=== PATIENT | female | born 1965 | race Caucasian/White ===

== ENCOUNTER → 2018-08-10 | Outpatient (CLI) | payer BC ==
--- NOTE | 2018-08-10 11:57 | ECHOF ---
Referral Reason:I10 HYPERTENSION MEASUREMENTS -------- HEIGHT: 157.5 cm WEIGHT: 111.1 kg BP: RVIDd: 2.5 cm (< 3.3) IVSd: 1.1 cm (0.6 - 1.1) LVIDd: 4.5 cm (3.9 - 5.3) LVPWd: 1.1 cm (0.6 - 1.1) IVSs: 1.5 cm LVIDs: 3.2 cm LVPWs: 1.5 cm LAESV Index (A-L): 25.16 ml/m Ao Diam: 2.9 cm (2.0 - 3.7) AV Cusp: 1.7 cm (1.5 - 2.6) LA Diam: 3.6 cm (2.7 - 3.8) MV EXCURSION: 15.271 mm (> 18.000) MV EF SLOPE: 27 mm/s (70 - 150) EPSS: 1.0 cm MV E Esteban: 0.74 m/s MV DecT: 214 ms MV A Esteban: 0.87 m/s MV E/A Ratio: 0.84 RAP: 5.00 mmHg RVSP: 10.65 mmHg FINDINGS -------- Sinus rhythm. This was a technically adequate study. The left ventricular size is normal. There is borderline concentric left ventricular hypertrophy. Overall left ventricular systolic function is normal with, an EF between 55 - 60 %. The right ventricle is normal in size and function. Normal LA size by volume 22+/-6 ml/m2. The right atrium is normal in size. The aortic valve is trileaflet, and appears structurally normal. No aortic stenosis or regurgitation. The mitral valve leaflets are mildly thickened. There is trace to mild mitral regurgitation. Trace tricuspid regurgitation present. Right ventricular systolic pressure is normal at < 35 mmHg. There is no evidence of pulmonary hypertension. Trace/mild (physiologic) pulmonic regurgitation. The aortic root size is normal. Normal inferior vena cava with normal inspiratory collapse consistent with estimated right atrial pre ssure of 5 mmHg. There is no pericardial effusion. CONCLUSIONS -------- 1. Sinus rhythm. 2. This was a technically adequate study. 3. The left ventricular size is normal. 4. There is borderline concentric left ventricular hypertrophy. 5. Overall left ventricular systolic function is normal with, an EF between 55 - 60 %. 6. Normal LA size by volume 22+/-6 ml/m2. 7. The aortic valve is trileaflet, and appears structurally normal. No aortic stenosis or regurgitati on. 8. The mitral valve leaflets are mildly thickened. 9. There is trace to mild mitral regurgitation. 10. Trace tricuspid regurgitation present. 11. Right ventricular systolic pressure is normal at < 35 mmHg. 12. There is no evidence of pulmonary hypertension. 13. Trace/mild (physiologic) pulmonic regurgitation. 14. The aortic root size is normal. 15. There is no pericardial effusion. CLERICAL ADMINISTRATOR: Romero Lee RDCS
== END | disposition home or self-care (01) ==
LOC: RADNMMAIN 09:54
PROVIDERS: ATTEND Family Medicine
DX: I37.1 Nonrheumatic pulmonary valve insufficiency (principal); I34.0 Nonrheumatic mitral (valve) insufficiency; I11.9 Hypertensive heart disease without heart failure; I25.10 Atherosclerotic heart disease of native coronary artery without angina pectoris; Z88.5 Allergy status to narcotic agent
CPT/HCPCS: 93306

== ENCOUNTER 2018-08-16 11:42 | Day surgery (SDC) | payer BC ==
[2018-08-09 15:34] VITALS: BMI 44.8
[~2018-08-16 11:42] MED LIST: DEXAMETHASONE SOD PHOSPHATE 10 MG/ML 1 ML VIAL IV ONE; HYDROmorphone 0.5 MG/0.5 ML SYRINGE IVP PRN; LACTATED RINGERS 1,000 ML IV SCH; MORPHINE SULFATE 2 MG/ML SYRINGE IV PRN; ONDANSETRON 4 MG/2 ML VIAL IVP ONE; ONDANSETRON 4 MG/2 ML VIAL IVP PRN; Pre Op ABX Message 1 EACH MISC MISCELLANE ONE
[2018-08-16 12:12] VITALS: RESP 16; TEMP 96.9
[2018-08-16] MEDS ORDERED: LIDOCAINE 1% 20 ML VIAL (10MG/ML) FOR IV START INTRADERMA ONE (12:27)
[2018-08-16] MEDS ORDERED: SCOPOLAMINE 1.5MG/72HR PATCH TRANSDERM ONE (12:35)
[2018-08-16] MEDS ORDERED: fentaNYL (PF) 50 MCG/ML 2 ML AMP ONE (13:25)
[2018-08-16] MEDS ORDERED: KETAMINE 10 MG/ML 20 ML VIAL ONE (13:25)
[2018-08-16] MEDS ORDERED: MIDAZOLAM 2 MG/2 ML VIAL ONE (13:25)
[2018-08-16] MEDS ORDERED: PROPOFOL 10 MG/ML 20 ML VIAL IV ONE (13:25)
[2018-08-16] MEDS ORDERED: LIDOCAINE 1%-EPI 1:100,000 20 ML VIAL SQ ONE (13:35)
[2018-08-16] MEDS ORDERED: LACTATED RINGERS 1,000 ML IV ONE ×2 (14:20→15:53)
[2018-08-16] MEDS ORDERED: hydrALAZINE HCL 20 MG/ML 1 ML VIAL IVP PRN (15:15)
[2018-08-16 15:50] VITALS: BP 158/94; PULSE 90
--- NOTE | 2018-08-29 11:43 | P.OP ---
Date of Procedure: 08/16/18 Preoperative Diagnosis: Plantar fasciitis right foot Postoperative Diagnosis: Same Procedure(s) Performed: Endoscopic plantar fasciotomy procedure right foot Anesthesia: MAC Surgeon: Chano Valdez Operative Findings: Unremarkable Description of Procedure: On the date of surgery the patient was taken to the operating room in good condition placed on the operating table in a supine position where an IV was started and adequate IV anesthetic agents were utilized. Anesthesia was then further supplemented with approximately 10 mL of 1% Xylocaine plain given in an infiltrative block to the patient's right heel. The patient's right foot and ankle were then prepped and draped in the usual aseptic manner and over heavy web roll padding an ankle tourniquet was placed above the malleoli of the patient's right ankle The patient's right foot and ankle were then elevated and exsanguinated of blood and after approximately 1 minutes. A time the ankle tourniquet to the patient's right ankle was inflated to approximately 250 mmHg This point in time attention was directed to the plantar medial side of the patient's right heel where an approximately 0.75 cm linear incision was made the incision was placed in line with the medial band of the plantar fascia the incision was then deepened down through the level of the subcutaneous tissue layers using blunt dissection dissection was carried deep to the medial band of the plantar area of the plantar fascia was identified and utilizing a fascial elevator a channel was created on the inferior surface of the plantar fascia from medially to laterally. This channel was created for the obturator cannula complex which was then inserted and a lateral exit portal incision was made. The canula was introduced from the medial side and L blade from the lateral side and the medial band of the plantar fascia was severed. Upon completion of this , a fascial probe was used to ensure that all fibers had been severed and when this was seen to be true surgical site was flushed with copious amounts of sterile saline solution. The cannula was then removed agitated maintained utilizing 4-0 nylon simple interrupted suture Adaptic Kerlix's four-inch conformer and 4 inch Coban was then used to form a compression dressing and the ankle tourniquet to the patient's right ankle was deflated adequate hemostatic return was seen in all digits of the patient's right foot. She tolerated the surgery and anesthesia well was taken to recovery room in good postoperative condition
== END 2018-08-16 16:22 | disposition home or self-care (01) ==
LOC: OR 11:42
PROVIDERS: ATTEND Podiatrist Foot & Ankle Surgery
DX: M72.2 Plantar fascial fibromatosis (principal); Z88.5 Allergy status to narcotic agent; I10 Essential (primary) hypertension; K21.9 Gastro-esophageal reflux disease without esophagitis; E66.01 Morbid (severe) obesity due to excess calories; Z68.41 Body mass index [BMI] 40.0-44.9, adult
CPT/HCPCS: 29893; J2250; J0360; J1100; J2405; J3010; J2704

== ENCOUNTER → 2018-12-11 | Outpatient (CLI) | payer BC ==
--- NOTE | 2018-12-11 09:23 | US ---
EXAMINATION TYPE: US pelvic complete DATE OF EXAM: 12/11/2018 COMPARISON: NONE CLINICAL HISTORY: N92.6 Irregular Menses. Lower back pain, irregular cycles, 2, para 2, histo ry of 2 c-sections. TECHNIQUE: . Transabdominal sonographic images of the pelvis were acquired. Transvaginal sonographi c images were medically necessary to better assess the following anatomy: Endometrium Date of LMP: 11/21/2018 EXAM MEASUREMENTS: Uterus: 7.7 x 3.8 x 4.7 cm Endometrial Stripe: 0.7 cm Right Ovary: 3.4 x 1.7 x 2.7 cm Left Ovary: 2.5 x 1.3 x 2.2 cm 1. Uterus: anteverted, heterogeneous, nabothian cyst 2. Endometrium: wnl, small amount of fluid in endocervical canal 3. Right Ovary: only seen transabdominally, appears wnl 4. Left Ovary: only seen transabdominally, appears wnl 5. Bilateral Adnexa: wnl 6. Posterior cul-de-sac: wnl IMPRESSION: 1. No distinct abnormality appreciated
== END | disposition home or self-care (01) ==
LOC: RADUSWWP 08:20
PROVIDERS: ATTEND Family Medicine
DX: N92.6 Irregular menstruation, unspecified (principal)
CPT/HCPCS: 76830; 76856

== ENCOUNTER → 2019-08-01 | Outpatient (CLI) | payer BC ==
--- NOTE | 2019-08-01 09:43 | US ---
EXAMINATION TYPE: US liver DATE OF EXAM: 08/01/2019 COMPARISON: NONE CLINICAL HISTORY: R94.5 Abnormal results of liver function studies. GB removed, abn labs. EXAM MEASUREMENTS: Liver Length: 15.6 cm CBD: 0.6 cm Right Kidney: 11.8 x 4.3 x 3.7 cm Pancreas: wnl Liver: wnl Gallbladder: Surgically absent Evidence for sonographic Hammer's sign: neg CBD: wnl Right Kidney: wnl IMPRESSION: 1. Normal right upper quadrant postcholecystectomy ultrasound
== END | disposition home or self-care (01) ==
LOC: RADUSWWP 06:58
PROVIDERS: ATTEND Family Medicine
DX: R94.5 Abnormal results of liver function studies (principal); Z90.49 Acquired absence of other specified parts of digestive tract
CPT/HCPCS: 76705

== ENCOUNTER 2024-01-11 08:56 | Day surgery (SDC) | payer BC ==
[2024-01-09 10:37] VITALS: BMI 40.2
--- NOTE | 2024-01-11 08:06 | P.GSHP ---
History of Present Illness H&P Date: 01/11/24 CHIEF COMPLAINT: Colon screen HISTORY OF PRESENT ILLNESS: The patient is a 58-year-old female who presents for colon screen. Lower endoscopy was offered for further evaluation and management. PAST MEDICAL HISTORY: Please see list. PAST SURGICAL HISTORY: Please see list. MEDICATIONS: Please see list. ALLERGIES: Please see list. SOCIAL HISTORY: No illicit drug use FAMILY HISTORY: No reports of Crohn disease or ulcerative colitis. REVIEW OF ORGAN SYSTEMS: CONSTITUTIONAL: No reports of fevers or chills. PHYSICAL EXAM: VITAL SIGNS: Stable GENERAL: Well-developed pleasant in no acute distress. HEENT: No scleral icterus. Extraocular movements grossly intact. Moist buccal mucosa. NECK: Supple without lymphadenopathy. CHEST: Unlabored respirations. Equal bilateral excursions. CARDIOVASCULAR: Regular rate and rhythm. Distal 2+ pulses. ABDOMEN: Soft, nontender, nondistended. MUSCULOSKELETAL: No clubbing, cyanosis, or edema. ASSESSMENT: 1. Colon screen. PLAN: 1. Recommend proceeding with a lower endoscopy Past Medical History Past Medical History: Diabetes Mellitus, Hypertension, Osteoarthritis (OA), Pneumonia, Thyroid Disorder Additional Past Medical History / Comment(s): migraines, "abnormal EKG", "leaky bladder", hx kidney stones, no meds for bp supplements for thyroid History of Any Multi-Drug Resistant Organisms: MRSA Date of last positivie culture/infection: 1999 approx MDRO Source:: stomach and under rt arm Past Surgical History: Adenoidectomy, Section, Cholecystectomy, Orthopedic Surgery, Tonsillectomy Additional Past Surgical History / Comment(s): bilatreral. foot planter fasicotomy, cornelius cataracts, left hand carpal tunnel, left knee arthroscopy, I&C abdomen and rt axilla, colonoscopy Past Anesthesia/Blood Transfusion Reactions: No Reported Reaction, Motion Sickness Additional Past Anesthesia/Blood Transfusion Reaction / Comment(s): no blood transfusion Smoking Status: Current every day smoker, Vaper - Past Family History Father Family Medical History: Cancer Additional Family Medical History / Comment(s): prostate Medications and Allergies Home Medications Medication Instructions Recorded Confirmed Type Cyanocobalamin (Vitamin B-12) 1,000 - 2,000 mcg PO DAILY 08/09/18 01/09/24 History [Vitamin B-12] Magnesium Oxide [Anna] 500 mg PO DAILY 08/09/18 01/09/24 History Multivitamins, Thera [Multivitamin 1 tab PO DAILY 08/09/18 01/09/24 History (formulary)] Prolamine Iodine 3 tab PO DAILY 08/09/18 01/09/24 History Vitamin D3(Dose Unknown) 1 tab PO DAILY 08/09/18 01/09/24 History Cinnamon Bark [Cinnamon] 500 mg PO DAILY 01/09/24 01/09/24 History metFORMIN HCL 500 mg PO DAILY 01/09/24 01/09/24 History Allergies Allergy/AdvReac Type Severity Reaction Status Date / Time No Known Allergies Allergy Verified 01/09/24 10:21
[2024-01-11 09:54] LABS: Glucose,Whole Blood 234 mg/dL (70-110)
[2024-01-11 09:56] VITALS: RESP 16; TEMP 97.2
[2024-01-11] MEDS: LACTATED RINGERS 1,000 ML IV SCH (09:56)
[2024-01-11] MEDS: LABETALOL SYRINGE 5 MG/ML (4 ML SYR) IVP ONE (10:04)
[2024-01-11] MEDS ORDERED: LIDOCAINE 1% INJ 10MG/ML (20 ML MDV) ONE (10:36)
[2024-01-11] MEDS ORDERED: PROPOFOL 10 MG/ML 20 ML VIAL IV ONE (10:36)
--- NOTE | 2024-01-11 11:29 | P.PCN ---
Date of Procedure: 01/11/24 Description of Procedure: PREOPERATIVE DIAGNOSIS: Colonoscopy screening. POSTOPERATIVE DIAGNOSIS: Colonoscopy screening. Diverticulosis, scattered. OPERATION: Colonoscopy to the cecum, ileocecal valve and appendiceal orifice. SURGEON: Misa Drummond MD. ANESTHESIA: MAC. INDICATIONS: The patient is a 58-year-old female who presents for colonoscopy screening. Benefits and risks were described and informed consent was obtained. DESCRIPTION OF PROCEDURE: The patient had undergone GoLytely prep. The patient had been brought into the operating room and laid in the left lateral decubitus position. After adequate intravenous sedation, the rectum was examined with 2% lidocaine jelly. No external hemorrhoids were encountered. The rectal tone was within normal limits. No lesions were palpated in the rectal vault. An Olympus colonoscope was advanced until the cecum, ileocecal valve and appendiceal orifice were clearly viewed. The prep was fair. Scattered diverticulosis was encountered. No colonic polyps were found. No evidence of focal colitis was found. Retroflexion of the scope demonstrated grade 2 internal hemorrhoids without active bleeding or inflammation. The colon was desufflated. The patient had tolerated the procedure well. Withdrawal time was over 6 minutes. FINDINGS: Aronchick preparation quality scale 2+ (1-5) Internal hemorrhoids, grade 2 No external prolapsed hemorrhoids. No arteriovenous malformations. No adenomatous polyps. No focal colitis. Sigmoid diverticulosis, mild RECOMMENDATIONS: Lower endoscopy in 10 years, 2033 Plan - Discharge Summary Discharge Rx Participant: No New Discharge Prescriptions: Continue Magnesium Oxide [Anna] 500 mg PO DAILY Cyanocobalamin (Vitamin B-12) [Vitamin B-12] 1,000 - 2,000 mcg PO DAILY Multivitamins, Thera [Multivitamin (formulary)] 1 tab PO DAILY Vitamin D3(Dose Unknown) 1 tab PO DAILY Prolamine Iodine 3 tab PO DAILY metFORMIN HCL 500 mg PO DAILY Cinnamon Bark [Cinnamon] 500 mg PO DAILY Discharge Medication List Cyanocobalamin (Vitamin B-12) [Vitamin B-12] 1,000 - 2,000 mcg PO DAILY 08/09/18 [History] Magnesium Oxide [Anna] 500 mg PO DAILY 08/09/18 [History] Multivitamins, Thera [Multivitamin (formulary)] 1 tab PO DAILY 08/09/18 [History] Prolamine Iodine 3 tab PO DAILY 08/09/18 [History] Vitamin D3(Dose Unknown) 1 tab PO DAILY 08/09/18 [History] Cinnamon Bark [Cinnamon] 500 mg PO DAILY 01/09/24 [History] metFORMIN HCL 500 mg PO DAILY 01/09/24 [History] Follow up Appointment(s)/Referral(s): Misa Drummond MD [STAFF PHYSICIAN] - As Needed Patient Instructions/Handouts: *Surgery [facility] - (Anesthesia) Discharge Instructions Outpatient Surgery Activity/Diet/Wound Care/Special Instructions: Repeat colonoscopy 10 years2033 Discharge Disposition: HOME SELF-CARE
[2024-01-11 11:36] VITALS: BP 177/77; PULSE 63
== END 2024-01-11 11:53 | disposition home or self-care (01) ==
LOC: ORWHC2ENDO 08:56
PROVIDERS: ATTEND Surgery Plastic and Reconstructive Surgery
DX: Z12.11 Encounter for screening for malignant neoplasm of colon (principal); K57.30 Diverticulosis of large intestine without perforation or abscess without bleeding; K64.1 Second degree hemorrhoids; I10 Essential (primary) hypertension; E11.9 Type 2 diabetes mellitus without complications; M19.90 Unspecified osteoarthritis, unspecified site; F17.200 Nicotine dependence, unspecified, uncomplicated; Z79.84 Long term (current) use of oral hypoglycemic drugs; Z90.49 Acquired absence of other specified parts of digestive tract; Z98.891 History of uterine scar from previous surgery; Z79.899 Other long term (current) drug therapy; Z90.89 Acquired absence of other organs
CPT/HCPCS: 45378; J2001; J2704; J1920

== ENCOUNTER → 2024-04-25 | Outpatient (CLI) | payer BC ==
--- NOTE | 2024-04-26 09:12 | MM ---
Reason for Exam: Screening (asymptomatic). Patient History: Menarche at age 13. First Full-Term at age 25. Postmenopausal. Patient has history of breast feeding. Risk Values: Jane 5 year model risk: 1.5%. NCI Lifetime model risk: 8.5%. Prior Study Comparison: No prior studies available for comparison. Tissue Density: There are scattered areas of fibroglandular density. Findings: Analyzed By CAD. There is no suspicious group of microcalcifications or new suspicious mass in either breast. Benign appearing calcification. Overall Assessment: Benign, BI-RAD 2 Management: Screening Mammogram of both breasts in 1 year. . Patient should continue monthly self-breast exams. A clinical breast exam by your physician is recommended on an annual basis. This exam should not preclude additional follow-up of suspicious palpable abnormalities. Note on Jane scores and lifetime risk: 1. A Jane score greater than 3% is considered moderate risk. If this is the case, consider specialist referral to assess eligibility for a risk reducing agent. 2. If overall lifetime risk for the development of breast cancer is 20% or higher, the patient may qualify for future screening with alternating mammogram and breast MRI. Electronically signed and approved by: Massimo Harry M.D. Radiologis
== END | disposition home or self-care (01) ==
LOC: RADMAMWWP 11:13
PROVIDERS: ATTEND Family Medicine
DX: Z12.31 Encounter for screening mammogram for malignant neoplasm of breast (principal); Z78.0 Asymptomatic menopausal state
CPT/HCPCS: 77067